=== PATIENT | female | born 1940 | race Caucasian/White ===

== ENCOUNTER 2018-02-08 13:43 | Outpatient (RCR) | payer MEDICARE, OTHER | END 2018-02-18 | disposition home or self-care (01) | LOC: WCC 13:43 | DX: L89.314 Pressure ulcer of right buttock, stage 4 (principal); E11.622 Type 2 diabetes mellitus with other skin ulcer; M19.90 Unspecified osteoarthritis, unspecified site; Z90.710 Acquired absence of both cervix and uterus | CPT/HCPCS: 11043; 87070; 87181; 87205; 97605 ==

== ENCOUNTER 2018-02-22 12:22 | Outpatient (RCR) | payer MEDICARE, OTHER | END 2018-03-20 | disposition home or self-care (01) | LOC: WCC 12:22 | DX: L89.314 Pressure ulcer of right buttock, stage 4 (principal); E11.622 Type 2 diabetes mellitus with other skin ulcer; Z90.710 Acquired absence of both cervix and uterus; Z79.84 Long term (current) use of oral hypoglycemic drugs; Z79.82 Long term (current) use of aspirin | CPT/HCPCS: 11043; 15271; 97605; Q4132 ==

== ENCOUNTER 2018-03-22 08:22 | Outpatient (RCR) | payer MEDICARE, OTHER | END 2018-04-20 | disposition home or self-care (01) | LOC: WCC 08:22 | DX: L89.314 Pressure ulcer of right buttock, stage 4 (principal); E11.622 Type 2 diabetes mellitus with other skin ulcer; M19.90 Unspecified osteoarthritis, unspecified site; Z79.82 Long term (current) use of aspirin; Z79.84 Long term (current) use of oral hypoglycemic drugs | CPT/HCPCS: 15271; 97605; Q4132; Q4133 ==

== ENCOUNTER 2018-04-26 13:19 | Outpatient (RCR) | payer MEDICARE, OTHER | END 2018-05-21 | disposition home or self-care (01) | LOC: WCC 13:19 | DX: L89.314 Pressure ulcer of right buttock, stage 4 (principal); E11.622 Type 2 diabetes mellitus with other skin ulcer; Z90.710 Acquired absence of both cervix and uterus; M19.90 Unspecified osteoarthritis, unspecified site; Z79.82 Long term (current) use of aspirin; Z79.84 Long term (current) use of oral hypoglycemic drugs | CPT/HCPCS: 11042; G0463 ==